=== PATIENT | female | born 1995 | race Asian ===

== ENCOUNTER 2018-03-06 22:25 | Emergency (ER) | payer OTHER ==
[2018-03-06] MEDS ORDERED: ONDANSETRON 4 MG/2 ML VIAL IVP ONE (22:28)
[2018-03-06] MEDS ORDERED: NS 1,000 ML IV ONE (22:28)
--- NOTE | 2018-03-06 22:30 | EDPHY ---
H & P Time Seen by Provider: 03/06/18 22:29 HPI/ROS: HPI CHIEF COMPLAINT: Alcohol Intoxication HISTORY OF PRESENT ILLNESS: 23-year-old female, presents emergency room by EMS highly intoxicated with alcohol. Patient was [facility] [employer] [facility] where she was found passed out. Vomit all over her soft. Friends report that she had a large amount of alcohol this evening. No comma ingestions reported. No trauma. Patient presents emergency room highly intoxicated alcohol. Unable to obtain history. Past Medical History: Unknown Past Surgical History: Unknown Social History: Large amount of alcohol per friends. Family History: Unknown ROS REVIEW OF SYSTEMS: 10 Systems were reviewed and negative with the exception of the elements mentioned in the history of present illness. Exam Constitutional Intoxicated, triage nursing summary reviewed, vital signs reviewed, Sleepy, smells of alcohol Eyes normal conjunctivae and sclera, horizontal beating nystagmus consistent acute alcohol intoxication, otherwise pupils equal and react to light HENT normal inspection, atraumatic, moist mucus membranes, no epistaxis, neck supple/ no meningismus, no raccoon eyes. Respiratory clear to auscultation bilaterally, normal breath sounds, no respiratory distress, no wheezing. Cardiovascular rate normal, regular rhythm, no murmur, no edema, distal pulses normal. Gastrointestinal soft, non-tender, no rebound, no guarding, normal bowel sounds, no distension, no pulsatile mass. Genitourinary no CVA tenderness. Musculoskeletal no midline vertebral tenderness, full range of motion, no calf swelling, no tenderness of extremities, no meningismus, good pulses, neurovascularly intact. Skin pink, warm, & dry, no rash, skin atraumatic. Neurologic sleepy, intoxicated with alcohol,, alert and oriented x 3, AAOx3, moves all 4 extremities equally, motor intact, sensory intact, CN II-XII intact , , normal vision, normal speech. Psychiatric normal mood/affect. Heme/Lymph/Immune no lymphadenopathy. 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 Monitor for worsening of condition. Re-evaluation: Serum alcohol level 278 Repeat chemistry as the 1st 2 were incorrect. Lab error. The repeat chemistry is appropriate within appropriate K. 0336: Patient ambulated well throughout the emergency room. Stable gait. She is on a [facility] hold. will go to [facility] for rest of recovery. Source: Patient, EMS Constitutional: Initial Vital Signs Temperature (C) 36.6 C 03/06/18 22:30 Heart Rate 88 03/06/18 22:30 Respiratory Rate 16 03/06/18 22:30 Blood Pressure 108/64 03/06/18 22:30 O2 Sat (%) 94 03/06/18 22:30 O2 Delivery Mode Room Air Allergies/Adverse Reactions: Unable to Assess Allergy (Unverified 03/06/18 22:40) Home Medications: Medication Instructions Recorded Unobtainable 03/06/18 Medical Decision Making - Data Points Laboratory Results: Laboratory Results 03/06/18 22:30 03/07/18 01:05 03/07/18 03/07/18 03/06/18 01:05 00:41 23:40 WBC RBC Hgb Hct MCV MCH MCHC RDW Plt Count MPV Neut % (Auto) Lymph % (Auto) Dup[place] % (Auto) Eos % (Auto) Baso % (Auto) Nucleat RBC Rel Count Absolute Neuts (auto) Absolute Lymphs (auto) Absolute Monos (auto) Absolute Eos (auto) Absolute Basos (auto) Absolute Nucleated RBC Immature Gran % Immature Gran # RBC/WBC/PLT Morphology Platelet Estimate Sodium 142 mEq/L mEq/L 144 mEq/L mEq/L (135-145) (135-145) Potassium 4.4 mEq/L mEq/L 3.1 mEq/L L mEq/L (3.3-5.0) (3.3-5.0) Chloride 110 mEq/L mEq/L 112 mEq/L H mEq/L (97-110) (97-110) Carbon Dioxide 18 mEq/l L mEq/l 17 mEq/l L mEq/l (22-31) (22-31) Anion Gap 14 mEq/L mEq/L 15 mEq/L H mEq/L (6-14) (6-14) BUN 10 mg/dL mg/dL 10 mg/dL mg/dL (7-23) (7-23) Creatinine 0.7 mg/dL mg/dL 0.7 mg/dL mg/dL (0.6-1.0) (0.6-1.0) Estimated GFR > 60 > 60 Glucose 91 mg/dL mg/dL 64 mg/dL L mg/dL (70-100) (70-100) POC Glucose 119 mg/dL H mg/dL (70-100) Calcium 8.5 mg/dL mg/dL 8.5 mg/dL mg/dL (8.5-10.4) (8.5-10.4) Specimen Hemolysis 114 Ethyl Alcohol 03/06/18 03/06/18 22:30 22:30 WBC 13.18 10^3/uL H 10^3/uL (3.80-9.50) RBC 4.58 10^6/uL 10^6/uL (4.18-5.33) Hgb 14.7 g/dL g/dL (12.6-16.3) Hct 42.5 % % (38.0-47.0) MCV 92.8 fL fL (81.5-99.8) MCH 32.1 pg pg (27.9-34.1) MCHC 34.6 g/dL g/dL (32.4-36.7) RDW 11.7 % % (11.5-15.2) Plt Count 352 10^3/uL 10^3/uL (150-400) MPV 9.3 fL fL (8.7-11.7) Neut % (Auto) 44.5 % % (39.3-74.2) Lymph % (Auto) 42.5 % % (15.0-45.0) Dup[place] % (Auto) 6.2 % % (4.5-13.0) Eos % (Auto) 5.8 % % (0.6-7.6) Baso % (Auto) 0.7 % % (0.3-1.7) Nucleat RBC Rel Count 0.0 % % (0.0-0.2) Absolute Neuts (auto) 5.87 10^3/uL 10^3/uL (1.70-6.50) Absolute Lymphs (auto) 5.60 10^3/uL H 10^3/uL (1.00-3.00) Absolute Monos (auto) 0.82 10^3/uL H 10^3/uL (0.30-0.80) Absolute Eos (auto) 0.76 10^3/uL H 10^3/uL (0.03-0.40) Absolute Basos (auto) 0.09 10^3/uL 10^3/uL (0.02-0.10) Absolute Nucleated RBC 0.00 10^3/uL 10^3/uL (0-0.01) Immature Gran % 0.3 % % (0.0-1.1) Immature Gran # 0.04 10^3/uL 10^3/uL (0.00-0.10) RBC/WBC/PLT Morphology TNP Platelet Estimate TNP Sodium 141 mEq/L mEq/L (135-145) Potassium 3.0 mEq/L L mEq/L (3.3-5.0) Chloride 108 mEq/L mEq/L (97-110) Carbon Dioxide 13 mEq/l L mEq/l (22-31) Anion Gap 20 mEq/L H mEq/L (6-14) BUN 11 mg/dL mg/dL (7-23) Creatinine 0.9 mg/dL mg/dL (0.6-1.0) Estimated GFR > 60 Glucose 205 mg/dL H mg/dL (70-100) POC Glucose Calcium 9.6 mg/dL mg/dL (8.5-10.4) Specimen Hemolysis Ethyl Alcohol 278 mg/dL H mg/dL (0-10) Medications Given: Discontinued Medications Sodium Chloride (Ns) 1,000 mls @ 0 mls/hr IV EDNOW ONE; Wide Open PRN Reason: Protocol Stop: 03/06/18 22:29 Last Admin: 03/06/18 22:45 Dose: 1,000 mls Potassium Chloride (Potassium Cl 20 Meq (Premix)) 100 mls @ 50 mls/hr IV EDNOW ONE Stop: 03/07/18 02:38 Last Admin: 03/07/18 02:26 Dose: Not Given Ondansetron HCl (Zofran) 4 mg IVP EDNOW ONE Stop: 03/06/18 22:29 Last Admin: 03/06/18 22:45 Dose: 4 mg Point of Care Test Results: Chemistry 03/07/18 00:41 POC Glucose 119 mg/dL H mg/dL (70-100) Departure - Departure Disposition: Home, Routine, Self-Care Clinical Impression: Alcoholic intoxication Condition: Good Instructions: Alcohol Intoxication (ED), Abuse of Alcohol (ED) Referrals: Patient,NotPresent [Primary Care Provider] - As per Instructions
[2018-03-06 22:44] LABS: PLATELET COUNT 352 10^3/uL (150-400)
[2018-03-07] MEDS ORDERED: POTASSIUM Cl (KCl) 100 ML IV ONE (00:39)
[2018-03-07 03:47] VITALS: BP 103/65
== END 2018-03-07 03:45 | disposition home or self-care (01) ==
DX: F10.920 Alcohol use, unspecified with intoxication, uncomplicated (principal); E86.9 Volume depletion, unspecified; Y90.8 Blood alcohol level of 240 mg/100 ml or more
CPT/HCPCS: 96374; G0480; J2405; J3480